=== PATIENT | male | born 1975 | race Caucasian/White ===

== ENCOUNTER 2016-04-07 08:57 | Outpatient (CLI) | payer OTHER ==
[2016-04-07 10:08] LABS: eGFR (African) > 60; eGFR (Non-African) > 60
== END 2016-04-07 09:00 ==
LOC: LAB 08:57
PROVIDERS: ATTEND Physician Assistant
DX: Z00.00 Encounter for general adult medical examination without abnormal findings (principal); E11.9 Type 2 diabetes mellitus without complications; Z13.6 Encounter for screening for cardiovascular disorders; E78.1 Pure hyperglyceridemia
CPT/HCPCS: 36415; 80053; 80061; 83036

== ENCOUNTER 2016-08-17 09:28 | Outpatient (CLI) | payer OTHER ==
[2016-08-17 10:06] LABS: eGFR (African) > 60; eGFR (Non-African) > 60
== END 2016-08-17 10:00 ==
LOC: LAB 09:28
PROVIDERS: ATTEND Physician Assistant
DX: E11.9 Type 2 diabetes mellitus without complications (principal)
CPT/HCPCS: 36415; 80053; 83036

== ENCOUNTER 2017-05-01 09:41 | Outpatient (CLI) | payer OTHER ==
[2017-05-01 10:29] LABS: eGFR (African) > 60; eGFR (Non-African) > 60
== END 2017-05-01 09:50 ==
LOC: LAB 09:41
PROVIDERS: ATTEND Physician Assistant
DX: Z00.00 Encounter for general adult medical examination without abnormal findings (principal); E78.2 Mixed hyperlipidemia; E11.9 Type 2 diabetes mellitus without complications
CPT/HCPCS: 36415; 80053; 80061; 83036

== ENCOUNTER 2018-05-03 08:40 | Outpatient (CLI) | payer OTHER ==
[2018-05-03 10:16] LABS: eGFR (Non-African) > 60
[2018-05-06 11:57] LABS: T3-UPTAKE SEE SCANNED RPEORT
== END 2018-05-03 08:42 ==
LOC: LAB 08:40
PROVIDERS: ATTEND Nurse Practitioner Family
DX: E11.9 Type 2 diabetes mellitus without complications (principal); R53.1 Weakness
CPT/HCPCS: 36415; 80053; 80061; 83036; 84436; 84479

== ENCOUNTER 2018-05-28 14:54 | Outpatient (CLI) | payer OTHER | END 2018-05-28 14:56 | LOC: OUT 14:54 | PROVIDERS: ATTEND Nurse Practitioner Family | DX: E11.65 Type 2 diabetes mellitus with hyperglycemia (principal); Z79.4 Long term (current) use of insulin | CPT/HCPCS: 97802 ==